=== PATIENT | female | born 1950 | race Caucasian/White ===

== ENCOUNTER → 2016-08-20 | Outpatient (CLI) | payer OTHER ==
--- NOTE | 2016-08-21 08:20 | MAMMOGRAPHY REPORT ---
UNILATERAL LEFT DIGITAL DIAGNOSTIC MAMMOGRAM TOMOSYNTHESIS WITH CAD AND TARGETED LEFT ULTRASOUND: CLINICAL HISTORY: 65-year-old woman presents for follow-up of a probably benign effacing 5.6 mm nodu lar asymmetry in the medial posterior left breast. TECHNIQUE: Left breast tomosynthesis in addition to standard 2D mammography was performed. Current leatha salinas was also evaluated with a Computer Aided Detection (CAD) system. COMPARISON: Comparison is made to exams dated: 02/15/2016 ultrasound, 02/15/2016 mammogram, 02/06/2016 mammogram, and 02/02/2015 mammogram - [facility]. BREAST COMPOSITION: The tissue of the left breast is extremely dense, which lowers the sensitivity of mammography. FINDINGS: The 5.6 m nodular asymmetry in the slightly medial posterior left breast, only seen on the CC view, is no longer clearly identified. The parenchymal pattern on the CC view appears very melinda lar to the 2013 and 2014 exams, suggesting it represents the patient's baseline. There are scattere d and grouped benign-appearing round microcalcifications and rim calcifications in the left breast. No obvious new mass, architectural distortion or new cluster of microcalcifications is seen. Targeted ultrasound was performed in the 12:00, retroareolar and 6:00 axes of the left breast as wel l as the medial left breast. Normal fibroglandular tissue is seen without a discrete solid or cysti c mass. IMPRESSION: ACR BI-RADS CATEGORY 2: BENIGN, TARGETED ULTRASOUND ACR BI-RADS CATEGORY 2: BENIGN The nodular asymmetry in the slightly medial posterior left breast is no longer identified, and ther e is no suspicious sonographic correlate. This most likely represented normal overlapping fibroglan dular tissue. Recommend follow-up at time of next annual screening mammogram (January 2017). These re sults and recommendations were discussed with the patient at the time of the exam. Approximately 10% of breast cancers are not detected with mammography. A negative mammographic repor t should not delay biopsy if a clinically suggestive mass is present. Aruna Hernandez M.D. ay/:08/20/2016 12:14:22 Quality Systems Engineer: Justine BOYCE(Lillian)(Mitzy), [facility] letter sent: Normal 1/2 BI-RADS Code: ACR BI-RADS Category 2: Benign Ultrasound BI-RADS: ACR BI-RADS Category 2: Benign
== END | disposition home or self-care (01) ==
LOC: C.MAMM 10:55
DX: N64.9 Disorder of breast, unspecified (principal)

== ENCOUNTER → 2016-09-13 | Outpatient (CLI) | payer OTHER | END | disposition home or self-care (01) | LOC: C.MAMM 13:57 | DX: M85.80 Other specified disorders of bone density and structure, unspecified site (principal) ==

== ENCOUNTER → 2016-10-29 | Outpatient (CLI) | payer OTHER | END | disposition home or self-care (01) | LOC: C.LAB 13:06 | DX: M85.80 Other specified disorders of bone density and structure, unspecified site (principal) ==

== ENCOUNTER → 2017-02-06 | Outpatient (CLI) | payer OTHER ==
--- NOTE | 2017-02-06 15:38 | MAMMOGRAPHY REPORT ---
BILATERAL DIGITAL SCREENING MAMMOGRAM TOMOSYNTHESIS WITH CAD: 02/06/2017 CLINICAL HISTORY: Routine screening. TECHNIQUE: Breast tomosynthesis in addition to standard 2D mammography was performed. Current study was also evaluated with a Computer Aided Detection (CAD) system. COMPARISON: Comparison is made to exams dated: 08/20/2016 mammogram, 02/15/2016 mammogram, 02/06/2016 m ammogram, 02/02/2015 mammogram, 02/01/2014 mammogram, and 01/28/2013 mammogram - [facility]. BREAST COMPOSITION: The tissue of both breasts is extremely dense, which lowers the sensitivity of m ammography. FINDINGS: No suspicious masses, calcifications, or areas of architectural distortion are noted in ei ther breast. There has been no significant interval change compared to prior exams. Bilateral benign -appearing calcifications are not significantly changed. IMPRESSION: ACR BI-RADS CATEGORY 2: BENIGN There is no mammographic evidence of malignancy. A 1 year screening mammogram is recommended. The pa tient will receive written notification of the results. Approximately 10% of breast cancers are not detected with mammography. A negative mammographic report should not delay biopsy if a clinically suggestive mass is present. Jennyfer Gerard M.D. ah/:02/06/2017 10:46:01 Jury Consultant: Cordelia MCNAIR)(M), [facility] letter sent: Normal 1/2 BI-RADS Code: ACR BI-RADS Category 2: Benign
== END | disposition home or self-care (01) ==
LOC: C.MAMM 10:19
DX: Z12.31 Encounter for screening mammogram for malignant neoplasm of breast (principal)

== ENCOUNTER → 2017-02-18 | Outpatient (CLI) | payer OTHER ==
[2017-02-18 10:40] LABS: CHOLESTEROL/HDL RATIO 2.6
== END | disposition home or self-care (01) ==
LOC: C.LAB 09:15
DX: E78.5 Hyperlipidemia, unspecified (principal)

== ENCOUNTER → 2017-07-30 | Outpatient (CLI) | payer OTHER ==
[2017-07-30 12:37] LABS: ALT/SGPT 61 U/L (12-78); AST/SGOT 32 U/L (15-37)
== END | disposition home or self-care (01) ==
LOC: C.LAB 10:35
DX: E78.5 Hyperlipidemia, unspecified (principal)

== ENCOUNTER → 2018-02-18 | Outpatient (CLI) | payer OTHER, MEDICARE | END | disposition home or self-care (01) | LOC: C.LABSPEC 13:08 | PROVIDERS: ATTEND Podiatrist Foot & Ankle Surgery | DX: L72.3 Sebaceous cyst (principal) ==

== ENCOUNTER 2023-03-17 02:44 | Observation (INO) ==
[2023-03-17] MEDS ORDERED: ONDANSETRON INJ 2 MG/ML 2 ML VIAL IV STA (02:54)
[2023-03-17] MEDS ORDERED: SODIUM CHLORIDE 0.9% 1000ML 500 ML IV ONE (02:54)
[2023-03-17] MEDS ORDERED: SODIUM CHLORIDE 0.9% 1000ML 1,000 ML IV SCH (03:00)
[2023-03-17] MEDS: HYDROmorphone INJ 0.5 MG/0.5 ML SYR IV PRN ×3 (03:17→05:04)
--- NOTE | 2023-03-17 03:17 | Emergency Department Note ---
Impression & Plan Acute right flank pain, Nausea & vomiting, H/O lithotripsy ED Provider Note INFORMANT: Patient ED PROVIDER(S): Stephen Winter MD CHIEF COMPLAINT: Right-sided back pain PLAN: Disposition: Admitted Condition: Good Outpatient prescription management: none Referral: None MEDICAL DECISION MAKING: Patient presented because of severe right-sided back pain. She was quite uncom fortable and actively dry heaving in the department. She was treated with normal saline hydration and IV Zofran. She was given IV Dilaudid for symptom control. Due to the level of discomfort and vomiting the patient was set up for CT imaging. Patient did require second dose of Dilaudid. She had CT findings consistent with ureterolithiasis, likely stone fragments from her procedure. Given her level of symptom patient will need further management in the hospital. [facility]. Patient was evaluated in the ER and admitted for further management. Discussed with manager outreach After review of the information above and other included data, I feel the patient requires admission. Triage Nursing notes reviewed and agree them. Vital Signs: reviewed and remarkable for mild hypertension Prior /Outside records reviewed: Prior surgery record reviewed Differential diagnosis: Postoperative pain, renal colic, UTI, appendicitis, diverticulitis, mesenteric ischemia, aortic pathology, infections, inflammatory bowel disease, PUD, biliary pathology, as well as other pathologies. Diagnostics, as interpreted by me: ECG: none Cardiac Monitoring: Cardiac monitoring ordered by me: The patient was placed on continuous cardiac monitoring and observed. It revealed a normal sinus rhythm at 77 beats per minute without ectopy or evidence of dysrhythmia. Medical decision rules: none Imaging studies: CT scan as above. Ureterolithiasis. HPI: The patient is a 72year old female who presents to the Emergency Room with complaints of right-sided back pain. This started 2 days ago and is from lithotripsy. Patient underwent lithotripsy with [facility], Dr. Marinelli. She notes since the time of surgery she has been having pain that has been fluctuating. She is also had nausea and vomiting. The patient also notes the following associated symptoms, right-sided abdominal pain. The patient has trying oxycodone relieving factors. Current pain is rated as 8/10. Pt denies LOC, headache, fevers, chills, diaphoresis, visual changes, neck pain, chest pain, breathing difficulties, melena, hematochezia, urinary symptoms, numbness, weakness, lymphadenopathy, rash, or other complaints. PAST MEDICAL HISTORY: See Below, kidney stone, renal mass PAST SURGICAL HISTORY: See Below, lithotripsy SOCIAL HISTORY: See Below, non-smoker HOME MEDICATIONS: See Below ALLERGIES: See Below VITALS: See Below PHYSICAL EXAMINATION: GENERAL: Awake, alert, uncomfortable -appearing, in moderate distress HENT: Normocephalic, atraumatic. Oropharynx unremarkable. EYES: Normal conjunctiva. Sclera non-icteric. NECK: Inspection normal. Non-tender. Supple. No nuchal rigidity. FROM. No masses. RESPIRATORY: Clear to auscultation. No wheezes. No rales. Normal respiratory effort. CARDIAC: Normal rate. Normal rhythm. No murmurs. No rubs. Extremities warm and well perfused. Pulses equal. No JVD. GI: Soft, non-distended. Right flank tenderness to palpation. No rebound or guarding. No masses. RECTAL: Deferred. MUSCULOSKELETAL: Atraumatic. Chest examination reveals no tenderness. The back is symmetrical on inspection without obvious abnormality. There is no CVA tenderness to palpation. No joint edema. LOWER EXTREMITIES: Calves are equal size bilaterally and non-tender. No edema. No discoloration. NEURO: Normal sensorium. No sensory or motor deficits noted. SKIN: No rash or jaundice noted. Past Med/Surg History Medical History Cardiac murmur no rubber down. denies previous echo. Fibroadenoma of left breast hx History of basal cell carcinoma History of colon polyps [place] (hard of hearing) Left ear Hypercholesterolemia Kidney stones Osteopenia Renal mass per pt, noted on recent MRI at [facility]. Surgical History History of basal cell carcinoma (BCC) excision History of colonoscopy History of lumpectomy of left breast History of toe surgery Family History Father Diabetes Hypertension Prostate cancer Skin cancer Mother Diabetes Social History Smoking Status: Never smoker Second Hand Exposure: Yes (hx); Do You Dip or Chew Tobacco: No; Hx Alcohol Use: Yes Alcohol Intake Frequency: Monthly or Less Hx Substance Use: No Preferred Language: Luxembourger Communication Ability: Effective Hardwood Sawyer Required: No Beliefs That Will Affect Care: None marital status: Single Current Living Situation: Other Current Living Situation Comment: lives with a friend current occupational status: retired Feels Safe at Home: Yes Assistive Devices: Glasses Allergies Allergies Allergy/AdvReac Type Severity Reaction Status Date / Time No Known Allergies Allergy Verified 03/15/23 06:13 Home Meds Home Medications Medication Instructions Recorded Confirmed escitalopram oxalate 20 mg tablet 20 mg PO DAILY 03/17/23 03/17/23 rosuvastatin 5 mg tablet 5 mg PO DAILY 03/17/23 03/17/23 tamsulosin 0.4 mg capsule 0.4 mg PO DAILY 03/17/23 03/17/23 valacyclovir 1 gram tablet 1,000 mg PO BID PRN Cold Sores 03/17/23 03/17/23 Results & Data (ED) Vital Signs Vital Signs - 24 hr 03/17/23 02:46 03/17/23 03:52 03/17/23 03:30 Temperature 36.9 C Temperature Source Temporal Artery Scan Pulse Rate 77 Pulse Rate [Apical] 62 Pulse Rhythm Regular Pulse Strength Normal Respiratory Rate 18 18 Respiratory Effort / Characteristics Non-Labored Spontaneous Respiratory Depth Normal Respiratory Pattern Regular Blood Pressure 169/79 H Blood Pressure [Right Arm] 148/84 H Blood Pressure Mean 109 Blood Pressure Mean [Right Arm] 105 Blood Pressure Position Sitting Pulse Oximetry 96 96 88 L Oxygen Delivery Method Room Air Nasal Cannula Oxygen Flow Rate 2 0 Sepsis Recent Fever Within 48 Hours No Sepsis New/Unexplained Change in Mental Status No Sepsis Action Taken by Nursing No Action Required Oxygen Flow Rate - Titration 2 Pulse Oximetry Post Tiitration 96 03/17/23 04:14 03/17/23 04:35 03/17/23 05:08 Temperature Temperature Source Pulse Rate 65 61 Pulse Rate [Apical] 56 L Pulse Rhythm Pulse Strength Respiratory Rate 18 16 Respiratory Effort / Characteristics Respiratory Depth Respiratory Pattern Blood Pressure Blood Pressure [Right Arm] 122/65 Blood Pressure Mean Blood Pressure Mean [Right Arm] 84 Blood Pressure Position Pulse Oximetry 94 94 Oxygen Delivery Method Nasal Cannula Nasal Cannula Oxygen Flow Rate 2 2 Sepsis Recent Fever Within 48 Hours Sepsis New/Unexplained Change in Mental Status Sepsis Action Taken by Nursing Oxygen Flow Rate - Titration Pulse Oximetry Post Tiitration 03/17/23 06:00 Temperature Temperature Source Pulse Rate Pulse Rate [Apical] 60 Pulse Rhythm Pulse Strength Respiratory Rate 18 Respiratory Effort / Characteristics Respiratory Depth Respiratory Pattern Blood Pressure Blood Pressure [Right Arm] 117/68 Blood Pressure Mean Blood Pressure Mean [Right Arm] 84 Blood Pressure Position Pulse Oximetry 95 Oxygen Delivery Method Nasal Cannula Oxygen Flow Rate 2 Sepsis Recent Fever Within 48 Hours Sepsis New/Unexplained Change in Mental Status Sepsis Action Taken by Nursing Oxygen Flow Rate - Titration Pulse Oximetry Post Tiitration Laboratory Data 03/17/23 03:10 03/17/23 03:10 Lab Results 03/17/23 03/17/23 03/17/23 Range/Units 03:10 03:10 03:14 WBC 11.28 H (4.8-10.8) K/ul RBC 4.00 L (4.20-5.40) M/uL Hgb 12.3 (12.0-16.0) g/dl POC Hgb 12.9 (12.0-16.0) g/dl Hct 37.4 (37.0-47.0) % POC Hct 38 (37-47) % MCV 93.5 (80.0-100.0) fL MCH 30.8 (25.0-34.0) pg MCHC 32.9 (32.0-36.0) g/dL RDW Std Deviation 45.9 (36.4-46.3) fL RDW Coeff of Javier 13.4 (11.5-14.5) % Plt Count 218 (130-400) K/uL MPV 10.9 (9.4-12.4) fL Immature Gran % (Auto) 0.4 % Neut % (Auto) 76.9 % Lymph % (Auto) 16.1 % [place] % (Auto) 4.9 % Eos % (Auto) 1.1 % Baso % (Auto) 0.6 % Neut # (Auto) 8.68 H (1.40-6.50) K/uL Lymph # (Auto) 1.82 (1.2-3.4) K/uL [place] # (Auto) 0.55 (0.11-0.59) K/uL Eos # (Auto) 0.12 (0-0.50) K/uL Baso # (Auto) 0.07 (0-0.2) K/uL Immature Gran # (Auto) 0.04 (0.01-0.20) K/uL POC Sodium 138 (135-144) mmol/L Sodium 139 (136-145) mmol/L POC Potassium 4.0 (3.3-5.0) mmol/L Potassium 4.0 (3.5-5.1) mmol/L POC Chloride 103 (101-112) mmol/L Chloride 105 (98-107) mmol/L Carbon Dioxide 25 (21-32) mmol/L POC Total CO2 23 L (24-31) mmol/L Anion Gap 9 (3-11) POC Anion Gap 17.0 (16-25) mmol/L POC BUN 17 (7-18) mg/dl BUN 18 (6-23) mg/dl Creatinine 1.03 (0.6-1.2) mg/dl POC Creatinine 1.0 (0.6-1.3) mg/dl Est Cr Clr Drug Dosing 48.0 ml/min Est GFR ( Amer) 63.8 ml/min Est GFR (Non-Af Amer) 55.0 ml/min BUN/Creatinine Ratio 17.5 (10-20) Glucose 142 H (70-99(Fasting)) mg/dl POC Glucose (other) 145 H (70-99) mg/dl Calcium 8.7 (8.6-10.3) mg/dl POC Ioniz Calcium [place] 1.13 (1.12-1.32) mmol/l Total Bilirubin 0.5 (0.2-1.0) mg/dl AST 21 (13-39) U/L ALT 20 (7-52) U/L Alkaline Phosphatase 47 (34-104) U/L Total Protein 6.6 (6.0-8.3) gm/dl Albumin 4.2 (3.4-5.0) gm/dl Globulin 2.4 L (2.5-4.0) gm/dl Albumin/Globulin Ratio 1.8 (0.9-2) Lipase 13 (11-82) U/L Administered Medications Hydromorphone HCl (Hydromorphone Inj 0.5 Mg/0.5 Ml Syr) 0.5 mg IV Q15M PRN PRN Reason: Pain Stop: 03/31/23 03:10 Last Admin: 03/17/23 05:04 Dose: 0.5 mg Documented By: Admin: 03/17/23 03:54 Dose: 0.5 mg Documented By: Admin: 03/17/23 03:17 Dose: 0.5 mg Documented By: RAQUEL Sodium Chloride (Nss 1000ml) 1,000 mls @ 125 mls/hr IV .Q8H JERRY Stop: 04/16/23 02:59 Last Admin: 03/17/23 03:36 Dose: 125 mls/hr Documented By: RAQUEL Discontinued Medications Sodium Chloride (Nss 1000ml) 500 mls @ 999 mls/hr IV .Q31M ONE Stop: 03/17/23 03:24 Last Infusion: 03/17/23 03:53 Dose: 0 mls/hr Documented By: Admin: 03/17/23 03:19 Dose: 999 mls/hr Documented By: RAQUEL Ioversol (Optiray 320 100ml) 92 ml IV ONCE ONE Stop: 03/17/23 03:49 Last Admin: 03/17/23 03:48 Dose: 92 ml Documented By: JHONY Ondansetron HCl (Ondansetron Inj 2 Mg/Ml 2 Ml Vial) 4 mg IV NOW STA Stop: 03/17/23 02:55 Last Admin: 03/17/23 03:17 Dose: 4 mg Documented By: RAQUEL Imaging Data Radiologist's Impression: Abdomen/Pelvis CT 03/17/23 02:56 Exam(s): CT ABDOMEN + PELVIS With Contrast IV Amt: 92 cc's optiray 320 EXAM: CT Abdomen and Pelvis With Intravenous Contrast CLINICAL HISTORY: Reason for exam: back and abd pain, s/p litho. hx of renal mass. TECHNIQUE: Axial computed tomography images of the abdomen and pelvis with intravenous contrast. CTDI is 13.4 mGy and DLP is 648.19 mGy-cm. Automated exposure control was utilized for the study. A dose lowering technique was utilized adhering to the principles of ALARA. CONTRAST: Patient received 92 cc's optiray 320 of IV contrast COMPARISON: No relevant prior studies available. FINDINGS: Lung bases: Unremarkable. No mass. No consolidation. Mediastinum: Small hiatus hernia. ABDOMEN: Liver: Unremarkable. No mass. Gallbladder and bile ducts: Unremarkable. No calcified stones. No ductal dilation. Pancreas: Unremarkable. No mass. No ductal dilation. Spleen: Unremarkable. No splenomegaly. Adrenals: Unremarkable. No mass. Kidneys and ureters: There is a right-sided hydroureteronephrosis due to the presence of multiple small calculi of the right vesicoureteral junction, measuring up to 4.5 mm in diameter.. Parapelvic cyst seen in the left kidney. Nonobstructing bilateral renal stones are seen, measuring 3 mm in diameter on the left and 4 mm in diameter on the right. 4 mm diameter calculus seen distally in the right renal pelvis. 1.8 cm cortical cyst seen in the right kidney. Stomach and bowel: Moderate amount of fecal matter seen in the colonic lumen. No obstruction. No mucosal thickening. PELVIS: Appendix: Normal appendix. Bladder: Multiple stones are seen at the right vesicoureteral junction, measuring up to 4.5 mm in diameter. Reproductive: Fibroid changes seen in the uterus with the largest fibroid measuring 4.4 cm in diameter. ABDOMEN and PELVIS: Intraperitoneal space: Unremarkable. No free air. No significant fluid collection. Bones/joints: No acute fracture. No dislocation. Soft tissues: Unremarkable. Vasculature: Unremarkable. No abdominal aortic aneurysm. Lymph nodes: Unremarkable. No enlarged lymph nodes. IMPRESSION: Right hydroureteronephrosis due to multiple right vesicoureteral junction calculi, measuring up to 4.5 mm in diameter. Bilateral nonobstructing nephrolithiasis Electronically signed by: Jesús Bruce MD 03/17/23 06:29 AM Discharge Plan Visit Data Chief Complaint: Back Injury/Pain Stated Complaint: BACK AND ABD PAIN ED Provider: Stephen Winter Discharge Problem: Acute right flank pain, Nausea & vomiting, H/O lithotripsy Forms Stand Alone Forms: My [facility] Prescriptions Prescriptions: No Action valacyclovir 1 gram tablet 1,000 mg PO BID PRN (Reason: Cold Sores) tamsulosin 0.4 mg capsule 0.4 mg PO DAILY escitalopram oxalate 20 mg tablet 20 mg PO DAILY rosuvastatin 5 mg tablet 5 mg PO DAILY Referrals Referrals: Catracho Bellamy DO [Primary Care Provider] -
[2023-03-17 03:27] LABS: iSTAT Hemoglobin 12.9 g/dl (12.0-16.0); iSTAT Ionized Calcium 1.13 mmol/l (1.12-1.32)
[2023-03-17 03:47] LABS: Basophils # (auto) 0.07 K/uL (0-0.2); Basophils % (auto) 0.6 %; Eosinophils # (auto) 0.12 K/uL (0-0.50); Eosinophils % (auto) 1.1 %; Hematocrit (blood only) 37.4 % (37.0-47.0); Hemoglobin 12.3 g/dl (12.0-16.0); Immature Granulocytes # (auto) 0.04 K/uL (0.01-0.20); Immature Granulocytes % (auto) 0.4 %; Lymphocytes # (auto) 1.82 K/uL (1.2-3.4); Lymphocytes % (auto) 16.1 %; Mean Corpuscular Hemoglobin 30.8 pg (25.0-34.0); Mean Corpuscular Hgb Conc 32.9 g/dL (32.0-36.0); Mean Corpuscular Volume 93.5 fL (80.0-100.0); Mean Platelet Volume 10.9 fL (9.4-12.4); Monocytes # (auto) 0.55 K/uL (0.11-0.59); Monocytes % (auto) 4.9 %; Neutrophils # (auto) 8.68 K/uL (1.40-6.50); Neutrophils % (auto) 76.9 %; Platelet Count 218 K/uL (130-400); RDW Coefficient of Variation 13.4 % (11.5-14.5); RDW Standard Deviation 45.9 fL (36.4-46.3); White Blood Count 11.28 K/ul (4.8-10.8)
[2023-03-17] MEDS ORDERED: OPTIRAY 320 100ml IV ONE (03:48)
[2023-03-17 03:53] LABS: Albumin Globulin Ratio 1.8 (0.9-2); Albumin Level 4.2 gm/dl (3.4-5.0); BUN Creatinine Ratio 17.5 (10-20); Bilirubin,Total 0.5 mg/dl (0.2-1.0); Calcium 8.7 mg/dl (8.6-10.3); Est GFR (African American) 63.8 ml/min; Globulin 2.4 gm/dl (2.5-4.0); Total Protein 6.6 gm/dl (6.0-8.3)
--- NOTE | 2023-03-17 06:14 | History & Physical Report ---
Date of Service March 17, 2023 Assessment & Plan (1) Acute right flank pain: Plan: 72 year-old female with past medical significant for hyperlipidemia, allergic rhinitis, general anxiety disorder s/p lithotripsy on Saturday since then having right flank pain Acute right flank pain and nausea vomiting Post lithotripsy Currently no hematuria afebrile We will follow CT results Pain control Clears for now Consult urology in a.m. Hyperlipidemia Statin Generalized anxiety disorder On Lexapro DVT prophylaxis SCDs and heparin subcu Disposition Observed in medical floor Full code History of Present Illness Chief Complaint: Severe right flank pain Primary Care Provider: Catracho Bellamy, 72 year-old female with past medical significant for hyperlipidemia, allergic rhinitis, general anxiety disorder s/p lithotripsy on Saturday since then having right flank pain. Pain seems improved yesterday morning but again came back severe in the night also with nausea and vomiting. Required several dose of Dilaudid in the ER. After the procedure she had a hematuria but that got resolved. Denies any fevers. Normal bowel movements. No chest pain or shortness of breath. No cough. Currently no headache. No blurred visions or earache or runny nose or sore throat. 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 denies previous echo. Fibroadenoma of left breast hx History of basal cell carcinoma History of colon polyps [place] (hard of hearing) Left ear Hypercholesterolemia Kidney stones Osteopenia Renal mass per pt, noted on recent MRI at [facility]. Surgical History History of basal cell carcinoma (BCC) excision History of colonoscopy History of lumpectomy of left breast History of toe surgery Family History Father Diabetes Hypertension Prostate cancer Skin cancer Mother Diabetes Social History Smoking Status: Never smoker Second Hand Exposure: Yes (hx); Do You Dip or Chew Tobacco: No; Hx Alcohol Use: Yes Alcohol Intake Frequency: Monthly or Less Hx Substance Use: No Preferred Language: Maori Communication Ability: Effective Ground Intelligence Officer Required: No Beliefs That Will Affect Care: None marital status: Single Current Living Situation: Other Current Living Situation Comment: lives with a friend current occupational status: retired Feels Safe at Home: Yes Assistive Devices: Glasses Review of Systems Review of Systems: All systems reviewed & are unremarkable except as noted in HPI & below Physical Exam Physical Exam: General- Not in distress Head- atraumatic Eyes- PERRL. ENT- oropharynx clear Neck- supple, no JVD. Lungs- clear to auscultation no wheezing or crackles. Heart- regular rhythm; no murmur, no gallop. Abdomen- normal bowel sounds, soft, right lower quadrant mild tender no distension no bruise seen Extremities- no pretibial edema, no erythema . Neuro- alert, oriented x 3; PERRL, no facial palsy; no dysarthria; non focal. Skin- warm & dry Results & Data Results & Data Vital Signs (Past 12 Hours) Vital Signs Temp Pulse Pulse Resp BP BP Pulse Ox 03/17/23 05:08 56 L 16 122/65 94 03/17/23 04:35 61 03/17/23 04:14 65 18 94 03/17/23 03:30 88 L 03/17/23 03:52 62 18 148/84 H 96 03/17/23 02:46 36.9 C 77 18 169/79 H 96 O2 Del Method O2 Flow Rate 03/17/23 05:08 Nasal Cannula 2 03/17/23 04:35 03/17/23 04:14 Nasal Cannula 2 03/17/23 03:30 0 03/17/23 03:52 Nasal Cannula 2 03/17/23 02:46 Room Air Diagnostic Findings Laboratory Results WBC 11.28 K/ul (4.8-10.8) H 03/17/23 03:10 RBC 4.00 M/uL (4.20-5.40) L 03/17/23 03:10 Hgb 12.3 g/dl (12.0-16.0) 03/17/23 03:10 POC Hgb 12.9 g/dl (12.0-16.0) 03/17/23 03:14 Hct 37.4 % (37.0-47.0) 03/17/23 03:10 POC Hct 38 % (37-47) 03/17/23 03:14 MCV 93.5 fL (80.0-100.0) 03/17/23 03:10 MCH 30.8 pg (25.0-34.0) 03/17/23 03:10 MCHC 32.9 g/dL (32.0-36.0) 03/17/23 03:10 RDW Std Deviation 45.9 fL (36.4-46.3) 03/17/23 03:10 RDW Coeff of Javier 13.4 % (11.5-14.5) 03/17/23 03:10 Plt Count 218 K/uL (130-400) 03/17/23 03:10 MPV 10.9 fL (9.4-12.4) 03/17/23 03:10 Immature Gran % (Auto) 0.4 % 03/17/23 03:10 Neut % (Auto) 76.9 % 03/17/23 03:10 Lymph % (Auto) 16.1 % 03/17/23 03:10 [place] % (Auto) 4.9 % 03/17/23 03:10 Eos % (Auto) 1.1 % 03/17/23 03:10 Baso % (Auto) 0.6 % 03/17/23 03:10 Neut # (Auto) 8.68 K/uL (1.40-6.50) H 03/17/23 03:10 Lymph # (Auto) 1.82 K/uL (1.2-3.4) 03/17/23 03:10 [place] # (Auto) 0.55 K/uL (0.11-0.59) 03/17/23 03:10 Eos # (Auto) 0.12 K/uL (0-0.50) 03/17/23 03:10 Baso # (Auto) 0.07 K/uL (0-0.2) 03/17/23 03:10 Immature Gran # (Auto) 0.04 K/uL (0.01-0.20) 03/17/23 03:10 POC Sodium 138 mmol/L (135-144) 03/17/23 03:14 Sodium 139 mmol/L (136-145) 03/17/23 03:10 POC Potassium 4.0 mmol/L (3.3-5.0) 03/17/23 03:14 Potassium 4.0 mmol/L (3.5-5.1) 03/17/23 03:10 POC Chloride 103 mmol/L (101-112) 03/17/23 03:14 Chloride 105 mmol/L (98-107) 03/17/23 03:10 Carbon Dioxide 25 mmol/L (21-32) 03/17/23 03:10 POC Total CO2 23 mmol/L (24-31) L 03/17/23 03:14 Anion Gap 9 (3-11) 03/17/23 03:10 POC Anion Gap 17.0 mmol/L (16-25) 03/17/23 03:14 POC BUN 17 mg/dl (7-18) 03/17/23 03:14 BUN 18 mg/dl (6-23) 03/17/23 03:10 Creatinine 1.03 mg/dl (0.6-1.2) 03/17/23 03:10 POC Creatinine 1.0 mg/dl (0.6-1.3) 03/17/23 03:14 Est Cr Clr Drug Dosing 48.0 ml/min 03/17/23 03:10 Est GFR ( Amer) 63.8 ml/min 03/17/23 03:10 Est GFR (Non-Af Amer) 55.0 ml/min 03/17/23 03:10 BUN/Creatinine Ratio 17.5 (10-20) 03/17/23 03:10 Glucose 142 mg/dl (70-99(Fasting)) H 03/17/23 03:10 POC Glucose (other) 145 mg/dl (70-99) H 03/17/23 03:14 Calcium 8.7 mg/dl (8.6-10.3) 03/17/23 03:10 POC Ioniz Calcium [place] 1.13 mmol/l (1.12-1.32) 03/17/23 03:14 Total Bilirubin 0.5 mg/dl (0.2-1.0) 03/17/23 03:10 AST 21 U/L (13-39) 03/17/23 03:10 ALT 20 U/L (7-52) 03/17/23 03:10 Alkaline Phosphatase 47 U/L (34-104) 03/17/23 03:10 Total Protein 6.6 gm/dl (6.0-8.3) 03/17/23 03:10 Albumin 4.2 gm/dl (3.4-5.0) 03/17/23 03:10 Globulin 2.4 gm/dl (2.5-4.0) L 03/17/23 03:10 Albumin/Globulin Ratio 1.8 (0.9-2) 03/17/23 03:10 Lipase 13 U/L (11-82) 03/17/23 03:10 Code Status & VTE Plan VTE Prophylaxis Plan VTE Prophylaxis will be ordered: Yes
--- NOTE | 2023-03-17 06:29 | CT Scan Report ---
Exam(s): CT ABDOMEN + PELVIS With Contrast IV Amt: 92 cc's optiray 320 EXAM: CT Abdomen and Pelvis With Intravenous Contrast CLINICAL HISTORY: Reason for exam: back and abd pain, s/p litho. hx of renal mass. TECHNIQUE: Axial computed tomography images of the abdomen and pelvis with intravenous contrast. CTDI is 13.4 mGy and DLP is 648.19 mGy-cm. Automated exposure control was utilized for the study. A dose lowering technique was utilized adhering to the principles of ALARA. CONTRAST: Patient received 92 cc's optiray 320 of IV contrast COMPARISON: No relevant prior studies available. FINDINGS: Lung bases: Unremarkable. No mass. No consolidation. Mediastinum: Small hiatus hernia. ABDOMEN: Liver: Unremarkable. No mass. Gallbladder and bile ducts: Unremarkable. No calcified stones. No ductal dilation. Pancreas: Unremarkable. No mass. No ductal dilation. Spleen: Unremarkable. No splenomegaly. Adrenals: Unremarkable. No mass. Kidneys and ureters: There is a right-sided hydroureteronephrosis due to the presence of multiple small calculi of the right vesicoureteral junction, measuring up to 4.5 mm in diameter.. Parapelvic cyst seen in the left kidney. Nonobstructing bilateral renal stones are seen, measuring 3 mm in diameter on the left and 4 mm in diameter on the right. 4 mm diameter calculus seen distally in the right renal pelvis. 1.8 cm cortical cyst seen in the right kidney. Stomach and bowel: Moderate amount of fecal matter seen in the colonic lumen. No obstruction. No mucosal thickening. PELVIS: Appendix: Normal appendix. Bladder: Multiple stones are seen at the right vesicoureteral junction, measuring up to 4.5 mm in diameter. Reproductive: Fibroid changes seen in the uterus with the largest fibroid measuring 4.4 cm in diameter. ABDOMEN and PELVIS: Intraperitoneal space: Unremarkable. No free air. No significant fluid collection. Bones/joints: No acute fracture. No dislocation. Soft tissues: Unremarkable. Vasculature: Unremarkable. No abdominal aortic aneurysm. Lymph nodes: Unremarkable. No enlarged lymph nodes. IMPRESSION: Right hydroureteronephrosis due to multiple right vesicoureteral junction calculi, measuring up to 4.5 mm in diameter. Bilateral nonobstructing nephrolithiasis Electronically signed by: Jesús Bruce MD 03/17/23 06:29 AM
--- NOTE | 2023-03-17 07:14 | Communication Note ---
Date of Service: March 17, 2023
[2023-03-17] MEDS ORDERED: oxyCODONE HCL IR 5 MG TAB (IMMEDIATE RELEASE) PO PRN (08:12)
[2023-03-17] MEDS ORDERED: POLYETHYLENE (MIRALAX) 17 GM PACK PO PRN (08:12)
[2023-03-17] MEDS ORDERED: ACETAMINOPHEN 325 MG TAB PO PRN (08:12)
[2023-03-17] MEDS ORDERED: ONDANSETRON INJ 2 MG/ML 2 ML VIAL IV PRN ×2 (08:12→10:51)
[2023-03-17] MEDS ORDERED: HYDROmorphone INJ 0.5 MG/0.5 ML SYR IV PRN (08:12)
--- NOTE | 2023-03-17 08:17 | Urology Consultation ---
Date of Consultation March 17, 2023 Assessment & Plan (1) Right ureteral calculus: Plan 72-year-old female with nephrolithiasis who status post right ESWL on 03/15/2023. She presented emergency department with right flank pain was found to have obstructing ureteral calculi. Her stone broke up nicely during ESWL however the fragments got stuck in her ureter prior to passage, which is a known risk of ESWL. Recommended that we take her to the OR for cystoscopy, right retrograde pyelogram and right ureteral stent placement to alleviate obstruction and improve her pain. Explained that she would need a second procedure down the road for stone treatment. Consent obtained, patient marked Keep n.p.o. for anticipated procedure today History of Present Illness Attending Physician: Ritu Spcier MD History of Present Illness 72-year-old female with a history of nephrolithiasis who status post right ESWL on 03/15/2023. She presented to the emergency department overnight with severe right flank pain. She was afebrile with stable vitals. Labs showed a leukocytosis of 11.2, and a creatinine of 1.03. They have yet to check a urine. I dependently reviewed a CT scan which shows right hydroureteronephrosis and a nonobstructing stone in the kidney. There is a stone at the right UPJ and layering of numerous stones at the right UVJ. She was noted to have previous left obstructing ureteral calculi which she had passed prior to this procedure and I do not see any obstructing stones on the left. Allergies Allergy/AdvReac Type Severity Reaction Status Date / Time No Known Allergies Allergy Verified 03/15/23 06:13 Home Medications Medication Instructions Recorded Confirmed Type escitalopram oxalate 20 mg tablet 20 mg PO DAILY 03/17/23 03/17/23 History rosuvastatin 5 mg tablet 5 mg PO DAILY 03/17/23 03/17/23 History tamsulosin 0.4 mg capsule 0.4 mg PO DAILY 03/17/23 03/17/23 History valacyclovir 1 gram tablet 1,000 mg PO BID PRN Cold Sores 03/17/23 03/17/23 History Patient History Medical History Cardiac murmur no blanket weaver. denies previous echo. Fibroadenoma of left breast hx History of basal cell carcinoma History of colon polyps [place] (hard of hearing) Left ear Hypercholesterolemia Kidney stones Osteopenia Renal mass per pt, noted on recent MRI at [facility]. Surgical History History of basal cell carcinoma (BCC) excision History of colonoscopy History of lumpectomy of left breast History of toe surgery Family History Father Diabetes Hypertension Prostate cancer Skin cancer Mother Diabetes Social History Smoking Status: Never smoker Second Hand Exposure: Yes (hx); Do You Dip or Chew Tobacco: No; Hx Alcohol Use: Yes Alcohol Intake Frequency: Monthly or Less Hx Substance Use: No Preferred Language: Persian Communication Ability: Effective Trial Examiner Required: No Beliefs That Will Affect Care: None marital status: Single Current Living Situation: Other Current Living Situation Comment: lives with a friend current occupational status: retired Feels Safe at Home: Yes Assistive Devices: Glasses Review of Systems Review of Systems: 14 point review of systems negative outside of what is listed above in HPI Physical Exam Physical Exam: General: Alert and oriented, no acute distress HEENT: Normocephalic, mucous membranes moist Pulmonary: Nonlabored respirations Abdomen: Nondistended Extremities: Moves all 4 spontaneously Neuro: No gross deficits Skin: Warm, dry, no rashes noted Results & Data Vital Signs (Past 12 Hours) Vital Signs Temp Pulse Pulse Resp BP BP Pulse Ox 03/17/23 06:00 60 18 117/68 95 03/17/23 05:08 56 L 16 122/65 94 03/17/23 04:35 61 03/17/23 04:14 65 18 94 03/17/23 03:30 88 L 03/17/23 03:52 62 18 148/84 H 96 03/17/23 02:46 36.9 C 77 18 169/79 H 96 O2 Del Method O2 Flow Rate 03/17/23 06:00 Nasal Cannula 2 03/17/23 05:08 Nasal Cannula 2 03/17/23 04:35 03/17/23 04:14 Nasal Cannula 2 03/17/23 03:30 0 03/17/23 03:52 Nasal Cannula 2 03/17/23 02:46 Room Air PG Care Time/CCT Total # of Minutes Spent Total Time Spent with Patient: Total time spent is greater than 50% in coordination of care (as documented) at patient's floor/unit and/or counseling patient: Coding Level of Care Code 03355 IN/OBS CONSULT LVL 3,45M Diagnoses Right ureteral calculus N20.1
[2023-03-17] MEDS ORDERED: ceFAZolin 2000MG 2,000 MG/15 ML SYR IV ONE (08:40)
[2023-03-17] MEDS ORDERED: TAMSULOSIN HCL 0.4 MG CAP PO SCH (09:00)
[2023-03-17] MEDS ORDERED: ROSUVASTATIN CALCIUM 5 MG TAB PO SCH (09:00)
[2023-03-17] MEDS ORDERED: ESCITALOPRAM OXALATE 20 MG TAB PO SCH (09:00)
[2023-03-17] MEDS ORDERED: HEPARIN SOD 5,000 UNIT/0.5 ML VIAL SQ SCH (09:00)
[2023-03-17] MEDS: SODIUM CHLORIDE 0.9% 1000ML 1,000 ML IV SCH ×2 (09:21→14:31)
[2023-03-17 09:44] LABS: Appearance Urine Clear (Clear); Bacteria Urine Automated Negative (Negative); Bilirubin Urine Negative (Negative); Blood Urine Trace (Negative); Cast Urine Automated 0 /lpf (0-5); Color Urine Yellow; Epithelial Cell Urine Auto 0-5 /lpf (0-5); Glucose Urine UA Negative (Negative); Ketones Urine 1+ (Negative); Leukocyte Esterase Urine Trace (Negative); Nitrite Urine Negative (Negative); Protein Urine Negative (Negative); Specific Gravity Urine > 1.045 (1.000-1.030); Urobilinogen Urine Negative (Negative)
[2023-03-17] MEDS ORDERED: ONDANSETRON INJ 2 MG/ML 2 ML VIAL ONE (09:49)
[2023-03-17] MEDS ORDERED: LIDOCAINE 2% 2 ML VIAL/AMP(20MG/ML) INFIL ONE (09:49)
[2023-03-17] MEDS ORDERED: DEXAMETHASONE SOD INJ 4 MG/ML VIAL ONE (09:49)
[2023-03-17] MEDS ORDERED: PROPOFOL IV EMULSION 10 MG/ML 20 ML VIAL IV ONE ×2 (09:49→11:09)
[2023-03-17] MEDS ORDERED: fentaNYL citrate PF 100 MCG/2 ML VIAL ONE (09:50)
[2023-03-17] MEDS ORDERED: MIDAZOLAM HCL 1 MG/ML 2ML VIAL ONE (09:50)
[2023-03-17 10:44] LABS: Basophils # (auto) 0.05 K/uL (0-0.2); Basophils % (auto) 0.6 %; Eosinophils # (auto) 0.02 K/uL (0-0.50); Eosinophils % (auto) 0.2 %; Hematocrit (blood only) 33.6 % (37.0-47.0); Hemoglobin 10.8 g/dl (12.0-16.0); Immature Granulocytes # (auto) 0.02 K/uL (0.01-0.20); Immature Granulocytes % (auto) 0.2 %; Lymphocytes # (auto) 0.96 K/uL (1.2-3.4); Lymphocytes % (auto) 10.7 %; Mean Corpuscular Hemoglobin 30.6 pg (25.0-34.0); Mean Corpuscular Hgb Conc 32.1 g/dL (32.0-36.0); Mean Corpuscular Volume 95.2 fL (80.0-100.0); Mean Platelet Volume 10.7 fL (9.4-12.4); Monocytes # (auto) 0.48 K/uL (0.11-0.59); Monocytes % (auto) 5.3 %; Neutrophils # (auto) 7.48 K/uL (1.40-6.50); Platelet Count 187 K/uL (130-400); RDW Coefficient of Variation 13.7 % (11.5-14.5); RDW Standard Deviation 47.7 fL (36.4-46.3); Red Blood Count 3.53 M/uL (4.20-5.40); White Blood Count 9.01 K/ul (4.8-10.8)
[2023-03-17] MEDS ORDERED: ATROPINE SULFATE 0.1 MG/ML 10ML SYR IV PRN (10:51)
[2023-03-17] MEDS ORDERED: ePHEDrine sulfate 50 MG/ML AMP IV PRN (10:51)
[2023-03-17] MEDS ORDERED: fentaNYL citrate PF 100 MCG/2 ML VIAL IV PRN (10:51)
--- NOTE | 2023-03-17 10:51 | Anesthesiology Consultation ---
Date of Service March 17, 2023 Assessment & Plan ASA ASA2 Proposed Anesthesia Anesthesia Type: MAC Risk / Benefits Reviewed With: PT / POA / Parent / Guardian, Accepts Plan and Informed Consent Obtained History Surgery Operation Date: 03/17/23 09:00 Proposed Procedures p Cystoscopy, Right Retrograde pyelogram, Right ureteral stent insertion(Right) - Kareem Marinelli MD Height/Weight Height: 5 ft 4 in Weight: 67.5 kg Allergies Allergy/AdvReac Type Severity Reaction Status Date / Time No Known Allergies Allergy Verified 03/15/23 06:13 Medications Home Medications Medication Instructions Recorded Confirmed Last Taken escitalopram oxalate 20 mg tablet 20 mg PO DAILY 03/17/23 03/17/23 Unknown rosuvastatin 5 mg tablet 5 mg PO DAILY 03/17/23 03/17/23 Unknown tamsulosin 0.4 mg capsule 0.4 mg PO DAILY 03/17/23 03/17/23 Unknown valacyclovir 1 gram tablet 1,000 mg PO BID PRN Cold Sores 03/17/23 03/17/23 Unknown Active Medications Generic Name Dose Route Start Last Admin Trade Name Freq PRN Reason Stop Dose Admin Escitalopram Oxalate 20 mg 03/17/23 09:00 03/17/23 09:24 Escitalopram Oxalate 20 Mg Tab PO 04/16/23 08:59 20 mg DAILY JERRY Administration Heparin Sodium (Porcine) 5,000 units 03/17/23 09:00 03/17/23 09:24 Heparin Sod 5,000 Unit/0.5 Ml Vial SQ 04/16/23 08:59 5,000 units Q12 JERRY Administration Hydromorphone HCl 0.5 mg 03/17/23 08:12 03/17/23 09:28 Hydromorphone Inj 0.5 Mg/0.5 Ml Syr IV 03/31/23 08:11 0.5 mg Q3H PRN Administration Severe Pain (Scale 7, 8, 9,10) Sodium Chloride 1,000 mls @ 125 mls/hr 03/17/23 08:12 03/17/23 09:21 Nss 1000ml IV 04/16/23 08:11 125 mls/hr .Q8H JERRY Administration Rosuvastatin Calcium 5 mg 03/17/23 09:00 03/17/23 09:26 Rosuvastatin Calcium 5 Mg Tab PO 09/19/23 08:59 5 mg DAILY JERRY Administration Tamsulosin HCl 0.4 mg 03/17/23 09:00 03/17/23 09:27 Tamsulosin Hcl 0.4 Mg Cap PO 04/16/23 08:59 0.4 mg DAILY JERRY Administration NPO Date Last Intake of Fluids: 03/17/23 Time Last Intake of Fluids: 08:30 Date Last Intake of Solids: 03/16/23 Time Last Intake of Solids: 17:00 Past Medical History Medical History Cardiac murmur no report checker. denies previous echo. Fibroadenoma of left breast hx History of basal cell carcinoma History of colon polyps [place] (hard of hearing) Left ear Hypercholesterolemia Kidney stones Osteopenia Renal mass per pt, noted on recent MRI at [facility]. Exercise / Class Metabolic Activity II 4-5 Yardwork/Stairs/Walk up hill Past Family History Family History Father Diabetes Hypertension Prostate cancer Skin cancer Mother Diabetes Past Surgical History Surgical History History of basal cell carcinoma (BCC) excision History of colonoscopy History of lumpectomy of left breast History of toe surgery Past Anesthesia History No Hx of Anesthesia Complications and No Family Hx of Anesthesia Complications History of PONV No Hx of PONV and No Hx of Motion Sickness Social History Smoking Status: Never smoker Do You Dip or Chew Tobacco: No Hx Alcohol Use: Yes Alcohol type: beer alcohol intake frequency: holidays/special occasions only Hx Substance Use: No substance use type: does not use Review of Systems denies fever/cough/ colds/ chest pain/ SOB/ ROGER denies ROGER Physical Exam Vital Signs Last Vital Signs Temp 36.9 C 03/17/23 08:30 Pulse 87 03/17/23 10:30 Resp 20 03/17/23 10:30 BP 111/78 03/17/23 10:30 Pulse Ox 97 03/17/23 10:30 O2 Del Method Room Air 03/17/23 10:30 O2 Flow Rate 2 03/17/23 08:41 ENMT Mouth: no TMJ abnormality and no dentition abnormality Thyromental Distance: > or= 3.5 Finger Breadths Mallampati Class: II Neck neck extension not limited Respiratory normal respiratory effort; no respiratory distress Auscultation: lungs clear to auscultation bilaterally Cardiovascular Rate/Rhythm: regular rate and regular rhythm Neurologic moves all extremities Psychiatric Orientation: alert and oriented x 3 Testing Laboratory Results 03/17/23 10:19 Urine Color Yellow 03/17/23 09:35 Urine Appearance Clear (Clear) 03/17/23 09:35 Urine pH 5.0 (4.5-7.5) 03/17/23 09:35 Ur Specific Rawlings > 1.045 (1.000-1.030) H 03/17/23 09:35 Urine Protein Negative (Negative) 03/17/23 09:35 Urine Glucose (UA) Negative (Negative) 03/17/23 09:35 Urine Ketones 1+ (Negative) H 03/17/23 09:35 Urine Nitrite Negative (Negative) 03/17/23 09:35 Ur Leukocyte Esterase Trace (Negative) H 03/17/23 09:35 Urine WBC (Auto) 5-10 /hpf (0-5) H 03/17/23 09:35 Urine RBC (Auto) 5-10 /hpf (0-4) H 03/17/23 09:35 U Hyaline Cast (Auto) 0 /lpf (0-5) 03/17/23 09:35 U Epithel Cells (Auto) 0-5 /lpf (0-5) 03/17/23 09:35 Urine Bacteria (Auto) Negative (Negative) 03/17/23 09:35 03/17/23 03:14 POC Glucose (other) 145 H
[2023-03-17 10:53] LABS: BUN Creatinine Ratio 12.6 (10-20); Calcium 7.9 mg/dl (8.6-10.3); Creatinine Clr Calc Pharmacy 38.9 ml/min; Est GFR (African American) 49.5 ml/min; Est GFR (Non-African American) 42.7 ml/min; Potassium 4.6 mmol/L (3.5-5.1)
[2023-03-17] MEDS ORDERED: DIATRIZOATE MEGLUMINE 30% 100ML VIAL INSTIL ONE (11:15)
--- NOTE | 2023-03-17 11:16 | Post Operative Brief Note ---
PG Immediate Post Op with CF Date of Surgery March 17, 2023 Pre & Post Diagnosis Operation Date: 03/17/23 09:00 Pre-Op Diagnosis: Right ureteral calculus Post-Op Diagnosis: Right ureteral calculus I identified the patient and participated in the time-out.: Yes Procedure Operation Date: 03/17/23 09:00 Actual Procedures p Cystoscopy, Right Retrograde pyelogram, Right ureteral stent insertion(Right) - Kareem Marinelli MD Surgeon Kareem Marinelli MD Crook Operator None Estimated Blood Loss 0 Findings See Below Stones UVJ. Retrograde showed somewhat tortuous proximal ureter and moderate hydronephrosis. Stents in appropriate position Specimens Specimen Description: No specimen per surgeon Anesthesia Type MAC Complications none
[2023-03-17] MEDS ORDERED: FLUMAZENIL 0.1 MG/1 ML 10 ML VIAL IV ONE (11:18)
--- NOTE | 2023-03-17 11:21 | Operative Report ---
PG Post Operative Report Pre & Post Diagnosis Operation Date: 03/17/23 09:00 Pre-Op Diagnosis: Right ureteral calculus Post-Op Diagnosis: Right ureteral calculus I identified the patient and participated in the time-out.: Yes Procedure Operation Date: 03/17/23 09:00 Actual Procedures p Cystoscopy, Right Retrograde pyelogram with radiographic interpretation, Right ureteral stent insertion(Right) - Kareem Marinelli MD Surgeon Kareem Marinelli MD Fiber Analyst None Estimated Blood Loss 0 Findings See Below Stone at UVJ. Retrograde showed somewhat tortuous proximal ureter and moderate hydronephrosis. Stents in appropriate position Some narrowing at urethral orifice that required gentle dilation with obturator. Specimens None Drains 6 Egyptian by 24 cm right ureteral stent Anesthesia Type MAC Complications none Indications 72-year-old female is status post right ESWL on Saturday who unfortunately developed obstructing fragments that are distal ureter. Due to intractable pain opted for stent placement. Description of Procedure After informed consent was obtained, the patient was transported operative suite. MAC anesthesia was induced. The patient was placed in dorsolithotomy position prepped and draped in a sterile fashion. They received preoperative Ancef for antibiotic prophylaxis. An appropriate surgical timeout was performed. A 22 Egyptian rigid scope was inserted per urethra into the bladder. Her urethra was somewhat narrow so I did gently dilate this with an obturator before putting in the scope. Jeffries cystoscopy revealed no stones or lesions. I turned my attention the right ureteral orifice and intubated this with a 5 Egyptian open- ended catheter. A right retrograde pyelogram was shot which showed mild hydronephrosis. There was some tortuosity of the right proximal ureter A sensor wire was advanced into the kidney and confirmed fluoroscopically. A 6 Egyptian by 24 cm right ureteral stent was deployed with a good proximal coil in the renal pelvis and a good distal coil noted in the bladder, confirmed fluoroscopically and under direct visualization, respectively. The bladder was emptied and the scope was removed. This concluded the end of the case. All counts were correct at the end of the case. I was present, scrubbed, and actively participated for the entirety of the procedure. I attest to the content of the Intraoperative Record and any orders documented therein. Any exceptions are noted below.
--- NOTE | 2023-03-17 11:28 | Fluoroscopy Report ---
FL retrograde includes kub CLINICAL HISTORY: RT SIDE RETROGRADE COMPARISON STUDY: Abdomen and pelvis CT 03/17/2023. FLUOROSCOPY TIME: 12 seconds. FLUOROSCOPY IMAGES: 3 Ka,r: 0.9 mGy FINDINGS: Retrograde opacification of the right renal collecting system/ureter followed by placement of a right ureteral stent. Only the proximal portion of the stent is identified but appears in good p osition. IMPRESSION: Fluoroscopic assistance as above. ACT 112: Negative or not required by law. Electronically signed by: Percy Serra M.D. 03/17/2023 11:27 AM
--- NOTE | 2023-03-17 11:56 | Anesthesiology Progress Note ---
Date of Service March 17, 2023 Anesthesia Post Procedure Vital Signs Vital Signs: Temp Pulse Pulse Resp BP BP Pulse Ox 03/17/23 11:40 60 13 103/54 L 100 03/17/23 11:30 63 17 98/49 L 98 03/17/23 11:24 36.5 C 68 12 91/45 L 98 03/17/23 10:30 87 20 111/78 97 03/17/23 08:41 64 18 99/62 L 94 03/17/23 08:30 36.9 C 60 20 102/56 L 92 03/17/23 06:00 60 18 117/68 95 03/17/23 05:08 56 L 16 122/65 94 03/17/23 04:35 61 03/17/23 04:14 65 18 94 03/17/23 03:30 88 L 03/17/23 03:52 62 18 148/84 H 96 03/17/23 02:46 36.9 C 77 18 169/79 H 96 O2 Del Method O2 Flow Rate 03/17/23 11:40 Oxymask 8 03/17/23 11:30 Oxymask 12 03/17/23 11:24 Oxymask 15 03/17/23 10:30 Room Air 03/17/23 08:41 Nasal Cannula 2 03/17/23 08:30 Nasal Cannula 2 03/17/23 06:00 Nasal Cannula 2 03/17/23 05:08 Nasal Cannula 2 03/17/23 04:35 03/17/23 04:14 Nasal Cannula 2 03/17/23 03:30 0 03/17/23 03:52 Nasal Cannula 2 03/17/23 02:46 Room Air Pain Intensity Right Flank: Pain Intensity: 2 Transfer of Care Handoff Completed per policy Notes Mental Status: alert / awake / arousable and participated in evaluation Patient Amnestic to Procedure: Yes Nausea / Vomiting: adequately controlled Pain: adequately controlled Airway Patency, RR, SpO2: stable & adequate BP & HR: stable & adequate Hydration State: stable & adequate Anesthetic Complications: no major complications apparent and Pt Satisfied with anesthetic care
--- NOTE | 2023-03-17 16:21 | Discharge Summary ---
Discharge Summary Date of Service March 17, 2023 Notes For Next Care Provider Chronic problem follow up Ensure follow up with Urology Medication Changes From Visit Oxybutynin and Flomax to help with symptoms Admission HPI Per Admitting Provider 72 year-old female with past medical significant for hyperlipidemia, allergic rhinitis, general anxiety disorder s/p lithotripsy on Saturday since then having right flank pain. Pain seems improved yesterday morning but again came back severe in the night also with nausea and vomiting. Required several dose of Dilaudid in the ER. After the procedure she had a hematuria but that got resolved. Denies any fevers. Normal bowel movements. No chest pain or shortness of breath. No cough. Currently no headache. No blurred visions or earache or runny nose or sore throat. Currently resting comfortably and hemodynamically stable Admission Exam Per Admitting Provider General- Not in distress Head- atraumatic Eyes- PERRL. ENT- oropharynx clear Neck- supple, no JVD. Lungs- clear to auscultation no wheezing or crackles. Heart- regular rhythm; no murmur, no gallop. Abdomen- normal bowel sounds, soft, right lower quadrant mild tender no distension no bruise seen Extremities- no pretibial edema, no erythema . Neuro- alert, oriented x 3; PERRL, no facial palsy; no dysarthria; non focal. Skin- warm & dry Principal Dx & Hospital Course #1 = Principal Diagnosis (1) Acute right flank pain: 72 year-old female with past medical significant for hyperlipidemia, allergic rhinitis, general anxiety disorder s/p lithotripsy on Saturday presenting with persistent right flank pain. Acute right flank pain Presented with N/V with right flank pain Post lithotripsy with Urology on 03/15 Currently no hematuria, afebrile CT abd/pelvis- noted "Right hydroureteronephrosis due to multiple right vesicoureteral junction calculi, measuring up to 4.5 mm in diameter. Bilateral nonobstructing nephrolithiasis" S/p stent placement with Urology on 03/17. Pain controlled post procedure. Urology recommending discharge on 03/17, pt stable and in agreement. Continue with Flomax and oxybutynin to help with symptoms. Pt declines pain medications for discharge. Hyperlipidemia Continue Statin Generalized anxiety disorder On Lexapro Discharge Exam General: Alert, oriented. No acute distress Skin: No noted rashes or bruises Psych: Appropriate mood and affect Neuro: No gross deficits HEENT: NC/AT CV: RRR, Normal s1, s2. Resp: no increased effort of breathing. Abdomen: Soft, nontender, nondistended. Extremities: No edema in lower extremities bilaterally. Updated Medication List Medication Instructions Recorded Confirmed Type escitalopram oxalate 20 mg tablet 20 mg PO DAILY 03/17/23 03/17/23 History oxybutynin chloride 5 mg 5 mg PO DAILY #30 tabs 03/17/23 Rx tablet,extended release 24 hr (Ditropan XL) rosuvastatin 5 mg tablet 5 mg PO DAILY 03/17/23 03/17/23 History tamsulosin 0.4 mg capsule 0.4 mg PO DAILY 03/17/23 03/17/23 History valacyclovir 1 gram tablet 1,000 mg PO BID PRN Cold Sores 03/17/23 03/17/23 History Hospital Stay Data Consultations 03/17/23 05:37 ED Decision to Admit Stat 03/17/23 08:12 Consult Urology Routine Procedures Performed Operation Date: 03/17/23 09:00 Actual Procedures p Cystoscopy, Right Retrograde pyelogram, Right ureteral stent insertion(Right) - Kareem Marinelli MD Diagnostic Imagining Performed 03/17/23 02:56 CT Abd and Pelvis [CT abd pelvis IV con only] Stat 03/17/23 09:30 FL retrograde includes kub Routine Pending Results Patient Have Any Pending Studies at Discharge: No Discharge Instructions Given to Patient (Per Discharging Provider) Take Tylenol and ibuprofen as needed for pain, though you indicated you do not think you need anything for pain. Continue taking Flomax as this can help with stent discomfort. Oxybutynin as needed, however this can cause dry mouth, constipation and difficulty urinating so only use when necessary. If you are not having bother from the stent, you do not need to take any occasions. MiraLAX [id number] as needed for constipation. It is normal to have blood in his urine while the stent is in place. The more activity perform, the bloody or your urine will be. This is okay as long as you are able to urinate. You will be called regarding a follow-up appointment to determine stone treatment. Call the office earlier with fevers or uncontrolled pain. Total Time Total Time Spent Total Time Spent (In Minutes): >30 minutes
== END 2023-03-17 17:45 | disposition home or self-care (01) ==
LOC: ED 02:44 → EDINP 02:44 → 3W 14:05